=== PATIENT | male | born 1975 | race Caucasian/White ===

== ENCOUNTER 2019-11-24 16:05 | Emergency (ER) | payer BC, OTHER ==
[~2019-11-24] VITALS: Ht 190.5 cm; Wt 163.5 kg
[2019-11-24 16:10] VITALS: BP 145/75
[2019-11-24] MEDS ORDERED: FLUORESCEIN (FLUOR-I-STRIPS) 1 MG STRP ONE (16:16)
[2019-11-24] MEDS ORDERED: BSS 15 ML ONE (16:16)
[2019-11-24] MEDS ORDERED: TETRACAINE 0.5% OPHTH SOLN 4 ML BTL (SINGLE DOSE ONLY) ONE (16:16)
[2019-11-24] MEDS ORDERED: BSS 15 ML IR PRN (16:30)
[2019-11-24] MEDS ORDERED: TETRACAINE 0.5% OPHTH SOLN 4 ML BTL (SINGLE DOSE ONLY) OP ONE (16:30)
[2019-11-24] MEDS ORDERED: FLUORESCEIN (FLUOR-I-STRIPS) 1 MG STRP OU ONE (16:30)
[2019-11-24] MEDS ORDERED: ERYTHROMYCIN OPHTH OINT 1 GM (SINGLE USE) TUBE ONE (16:40)
--- NOTE | 2019-11-24 16:49 | ED EENT ---
History of Present Illness General Chief Complaint: Eye Problems Stated Complaint: METAL IN EYE Source: patient Exam Limitations: no limitations History of Present Illness Date Seen by Provider: Nov 24, 2019 Time Seen by Provider: 16:30 Initial Comments grinding some metal without eye protection and felt something get in his right eye. Feels like something scratching, no trauma or significant pain. No loss of vision, but moderate tearing. Allergies and Home Medications Allergies Coded Allergies: Sulfa (Sulfonamide Antibiotics) (Unverified Adverse Reaction, Unknown, 11/24/19) Patient Home Medication List Home Medication List Reviewed: Yes Review of Systems Review of Systems Constitutional: no symptoms reported Eyes: See HPI; Denies Blindness, Denies Blurred Vision, Denies Drainage; Foreign Body Sensation; Denies Inflammation, Denies Pain, Denies Photophobia, Denies Previous Injury, Denies Shadows Skin: No change in color, No rash Past Tjbdvbi-Mbeklx-Ubwiym Hx Past Med/Social Hx: Reviewed Nursing Past Med/Soc Hx Patient Social History Recent Foreign Travel: No Contact w/Someone Who Travel: No Visual Acuity : Eye Location: Right Physical Exam Vital Signs Vital Signs - First Documented 11/24/19 16:10 Temp 36.4 Pulse 96 Resp 16 B/P (MAP) 145/75 (98) Pulse Ox 97 O2 Delivery Room Air Height, Weight, BMI Height: '" Weight: lbs. oz. kg; BMI Method: General Appearance: WD/WN, no apparent distress Eyes: right eye foreign body; bilateral eye PERRL, bilateral eye EOMI applied tetracaine gtts, then fluorescien. Able to see central corneal F B.....removed w irrigation and cotton swab. Tolerated well. Remaining small (vertical) corneal abrasion of central cornea. Progress/Results/Core Measures Results/Orders My Orders Orders - ASHLEY HOFFMAN DO Tetracaine 0.5% Ophth Iris Sdv (Tetracai (11/24/19 16:16) Fluorescein Strips (Yraqm-F-Luvvcd) (11/24/19 16:16) Balanced Salt Irrigation Soln (Bss Irrig (11/24/19 16:16) Tetracaine 0.5% Ophth Iris Sdv (Tetracai (11/24/19 16:30) Balanced Salt Irrigation Soln (Bss Irrig (11/24/19 16:30) Fluorescein Strips (Dzwve-Y-Pgtbuc) (11/24/19 16:30) Erythromycin Ophth Oint (Erythromycin Op (11/24/19 16:40) Erythromycin Ophth Oint (Erythromycin Op (11/24/19 22:00) Medications Given in ED Current Medications Medications Dose Ordered Sig/Nancy Route Start Time Stop Time Status Last Admin Dose Admin Balanced Salt Solution 15 ml PRN PRN IR 11/24/19 16:30 11/24/19 16:54 DC 11/24/19 16:34 15 ML Fluorescein Sodium 1 mg ONCE ONCE OU 11/24/19 16:30 11/24/19 16:31 DC 11/24/19 16:35 1 MG Tetracaine HCl 1 OR 2 DROPS INTO AFFEC... ONCE ONCE OP 11/24/19 16:30 11/24/19 16:31 DC 11/24/19 16:35 4 ML Vital Signs/I&O 11/24/19 16:10 Temp 36.4 Pulse 96 Resp 16 B/P (MAP) 145/75 (98) Pulse Ox 97 O2 Delivery Room Air Departure Impression Primary Impression: Corneal abrasion Qualified Codes: S05.01XA - Injury of conjunctiva and corneal abrasion without foreign body, right eye, initial encounter Disposition: HOME, SELF-CARE Condition: Improved Departure-Patient Inst. Decision time for Depature: 16:47 Referrals: SELFJOHN MD (PCP/Family) Primary Care Physician Patient Instructions: Corneal Abrasion (DC) Add. Discharge Instructions: Follow-up with your or a local Eye Doctor in 2-3 days for re-evaluation of your eye injury. Use your antibiotic ointment in your right eye 3 times daily for 3 days All discharge instructions reviewed with patient and/or family. Voiced understanding. ASHLEY HOFFMAN DO Nov 24, 2019 16:48
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
[2019-11-24] MEDS ORDERED: ERYTHROMYCIN OPHTH OINT 1 GM (SINGLE USE) TUBE OP SCH (22:00)
== END 2019-11-24 16:54 | disposition home or self-care (01) ==
LOC: ER FS 16:06
DX: S05.01XA Injury of conjunctiva and corneal abrasion without foreign body, right eye, initial encounter (principal); Z88.2 Allergy status to sulfonamides; W22.8XXA Striking against or struck by other objects, initial encounter
CPT/HCPCS: 65220

== ENCOUNTER 2021-04-03 10:17 | Outpatient (CLI) | payer BC ==
[~2021-04-03] VITALS: Ht 190.5 cm; Wt 170.0 kg
[2021-04-03 10:23] VITALS: BP 167/92
[2021-04-03] MEDS ORDERED: diphenhydrAMINE 50 MG/ML INJ (BENADRYL) IV PRN (10:45)
[2021-04-03] MEDS ORDERED: CASIRIVIMAB/IMDEVIMAB 1,200 MG in NS (IVPB) 250 ML IV ONE (10:45)
[2021-04-03] MEDS ORDERED: ONDANSETRON 4 MG/2 ML (SDV) Z0FRAN IV PRN (10:45)
[2021-04-03] MEDS ORDERED: ACETAMINOPHEN 500 MG TAB (TYLENOL) PO PRN (10:45)
[2021-04-03] MEDS ORDERED: EPINEPHrine INJECTION 1 MG/ML AMP IM PRN (10:45)
[2021-04-03 11:59] VITALS: BP 131/87
== END 2021-04-03 12:00 | disposition home or self-care (01) ==
LOC: INFUSION 10:17
PROVIDERS: ATTEND Family Medicine
DX: U07.1 COVID-19 (principal)

== ENCOUNTER 2022-07-22 09:02 | Emergency (ER) | payer OTHER, BC ==
[~2022-07-22] VITALS: Ht 190 cm; Wt 158.7 kg
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
[2022-07-22] MEDS ORDERED: KETOROLAC 30 MG/ML VIAL IM ONE (09:30)
[2022-07-22] MEDS ORDERED: ORPHENADRINE 60 MG/2 ML (NORFLEX) AMP (ED ONLY) IM ONE (09:30)
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
[2022-07-22 10:38] VITALS: BP 157/111
== END 2022-07-22 10:38 | disposition home or self-care (01) ==
LOC: EDUNIT# 09:02 → ER 09:07
DX: S13.9XXA Sprain of joints and ligaments of unspecified parts of neck, initial encounter (principal); S40.011A Contusion of right shoulder, initial encounter; M54.50 Low back pain, unspecified; G89.29 Other chronic pain; E66.9 Obesity, unspecified; Z68.41 Body mass index [BMI] 40.0-44.9, adult; V89.2XXA Person injured in unspecified motor-vehicle accident, traffic, initial encounter; Y92.410 Unspecified street and highway as the place of occurrence of the external cause
CPT/HCPCS: 73030

== ENCOUNTER 2022-10-02 18:43 | Emergency (ER) | payer BC ==
[~2022-10-02] VITALS: Ht 190.5 cm; Wt 157.0 kg
--- NOTE | 2022-10-02 19:10 | ED General ---
General Chief Complaint: Post OP Complications/Pain Stated Complaint: POST OP INCISION SITE SWELLING,FATIGUE Nursing Triage Note: Patient had a neck surgery on September 22. The surgeon took a graft from the left lower abdoment to place in the neck. The patient states that he is having pain in his lower left abdomen and he feels that there is more swelling than there had been. Patient was prescribed Claude for pain and he took his last dose at 13:00 today. There is a dressing in place that is clean and dry. Source of Information: Patient, Spouse History of Present Illness Date Seen by Provider: Oct 02, 2022 Time Seen by Provider: 18:48 Initial Comments 47-year-old male presenting with complaints of not feeling well today and having generalized body aches. He felt he had increased pain in his neck as well as the left side of his abdomen. He felt like there was swelling to the left side of his abdomen. He had an anterior cervical discectomy fusion at C5-C6 level on September 22 and [place] with the Dr. Mak Gagnon MD. They did not try to contact the surgeon or check with them about their concerns today. He had not been taking his pain medicine in the last week as he was not feeling severe pain however today he has had several doses of his hydrocodone with no improvement in his body aches and pain. Although they did not check with the surgeon that actually did the surgery they did call his sister who they say is a nurse and she told him to get to the emergency department for testing to check for sepsis and an abscess. He denies fever or chills. He complains of generalized body aches and pain and pain along left hip where he had bone graft for his cervical spine fusion. Timing/Duration: 4-6 Hours Severity: Moderate Associated Systoms: No Chest Pain, No Cough, No Diaphoresis, No Fever/Chills, No Headaches, No Loss of Appetite; Malaise; No Nausea/Vomiting, No Rash, No Seizure, No Shortness of Air, No Syncope Allergies and Home Medications Allergies Coded Allergies: Sulfa (Sulfonamide Antibiotics) (Unverified Adverse Reaction, Unknown, 11/24/19) Patient Home Medication List Home Medication List Reviewed: Yes Review of Systems Review of Systems Constitutional: No chills, No fever; malaise EENTM: no symptoms reported Respiratory: No cough Cardiovascular: No chest pain Gastrointestinal: see HPI Genitourinary: no symptoms reported Musculoskeletal: see HPI Skin: No change in color Psychiatric/Neurological: No Symptoms Reported Past Vovujog-Txenwl-Elpmyo Hx Patient Social History Tobacco Use?: Yes Tobacco type used: Cigarettes Smoking Status: Current Everyday Smoker Substance use?: No Alcohol Use?: No Immunizations Up To Date First/Initial COVID19 Vaccinat: moderna Second COVID19 Vaccination Chalino: yes COVID19 Vaccine Mopper: Moderna Seasonal Allergies Seasonal Allergies: No Past Medical History Surgery/Hospitalization HX: DM, HTN, ACDF at C5-6 on September 22, 2022 Surgeries: Yes (Back fusion, fusion cage) Orthopedic Respiratory: No Cardiac: Yes Hypertension Neurological: No Genitourinary: No Gastrointestinal: No Musculoskeletal: No Endocrine: No HEENT: No Cancer: No Psychosocial: No Integumentary: No Blood Disorders: No Physical Exam Vital Signs Vital Signs - First Documented 10/02/22 18:45 Temp 36.3 Pulse 133 Resp 18 B/P (MAP) 133/81 (98) Pulse Ox 99 O2 Delivery Room Air Capillary Refill : Less Than 3 Seconds Height, Weight, BMI Height: '" Weight: lbs. oz. kg; 43.00 BMI Method: General Appearance: No Apparent Distress, Obese Respiratory: Chest Non Tender, Lungs Clear, Normal Breath Sounds, No Accessory Muscle Use, No Respiratory Distress Cardiovascular: Regular Rate, Rhythm, Normal Peripheral Pulses Gastrointestinal: Normal Bowel Sounds, No Pulsatile Mass, Soft; No Distended, No Guarding; Tenderness (mild tenderness to left lower abdominal wall around surgery site) Rectal: Deferred Extremity: Normal Capillary Refill, Normal Inspection, No Pedal Edema Neurologic/Psychiatric: Alert, Oriented x3, grip II-XII Norm as Tested Skin: Normal Color, Warm/Dry; No Erythema Focused Exam Lactate Level 10/02/22 19:10: Lactic Acid Level 2.05*H Lactic Acid Level Laboratory Tests Test 10/02/22 19:10 Lactic Acid Level 2.05 MMOL/L (0.50-2.00) *H Progress/Results/Core Measures Suspected Sepsis SIRS Temperature: Pulse: 133 Respiratory Rate: 18 Laboratory Tests 10/02/22 19:10: White Blood Count 14.6H Blood Pressure 133 /81 Mean: 98 10/02/22 19:10: Lactic Acid Level 2.05*H Laboratory Tests 10/02/22 19:10: Creatinine 1.55H, Platelet Count 247, Total Bilirubin 0.5 Results/Orders Lab Results Laboratory Tests Test 10/02/22 19:10 Range/Units White Blood Count 14.6 H 4.3-11.0 10^3/uL Red Blood Count 4.66 4.30-5.52 10^6/uL Hemoglobin 14.5 13.3-17.7 g/dL Hematocrit 42 40-54 % Mean Corpuscular Volume 90 80-99 fL Mean Corpuscular Hemoglobin 31 25-34 pg Mean Corpuscular Hemoglobin Concent 34 32-36 g/dL Red Cell Distribution Width 12.8 10.0-14.5 % Platelet Count 247 130-400 10^3/uL Mean Platelet Volume 9.6 9.0-12.2 fL Immature Granulocyte % (Auto) 0 % Neutrophils (%) (Auto) 70 42-75 % Lymphocytes (%) (Auto) 20 12-44 % Monocytes (%) (Auto) 7 0-12 % Eosinophils (%) (Auto) 2 0-10 % Basophils (%) (Auto) 0 0-10 % Neutrophils # (Auto) 10.3 H 1.8-7.8 10^3/uL Lymphocytes # (Auto) 2.9 1.0-4.0 10^3/uL Monocytes # (Auto) 1.1 H 0.0-1.0 10^3/uL Eosinophils # (Auto) 0.3 0.0-0.3 10^3/uL Basophils # (Auto) 0.1 0.0-0.1 10^3/uL Immature Granulocyte # (Auto) 0.1 0.0-0.1 10^3/uL Neutrophils % (Manual) 77 % Lymphocytes % (Manual) 20 % Monocytes % (Manual) 3 % Sodium Level 134 L 135-145 MMOL/L Potassium Level 3.7 3.6-5.0 MMOL/L Chloride Level 96 L 98-107 MMOL/L Carbon Dioxide Level 24 21-32 MMOL/L Anion Gap 14 5-14 MMOL/L Blood Urea Nitrogen 17 7-18 MG/DL Creatinine 1.55 H 0.60-1.30 MG/DL Estimat Glomerular Filtration Rate 55 BUN/Creatinine Ratio 11 Glucose Level 153 H 70-105 MG/DL Lactic Acid Level 2.05 *H 0.50-2.00 MMOL/L Calcium Level 9.0 8.5-10.1 MG/DL Corrected Calcium 9.2 8.5-10.1 MG/DL Total Bilirubin 0.5 0.1-1.0 MG/DL Aspartate Amino Transf (AST/SGOT) 38 H 5-34 U/L Alanine Aminotransferase (ALT/SGPT) 93 H 0-55 U/L Alkaline Phosphatase 65 40-136 U/L C-Reactive Protein 3.47 H <0.50 MG/DL Total Protein 6.4 6.4-8.2 GM/DL Albumin 3.7 3.2-4.5 GM/DL Influenza Type A (RT-PCR) Not Detected Not Detecte Influenza Type B (RT-PCR) Not Detected Not Detecte SARS-CoV-2 RNA (RT-PCR) Not Detected Not Detecte My Orders Orders - RAEANN ULRICH MD Ed Iv/Invasive Line Start (10/02/22 18:57) Cbc With Automated Diff (10/02/22 18:57) Comprehensive Metabolic Panel (10/02/22 18:57) Lactic Acid Analyzer (10/02/22 18:57) Blood Culture (10/02/22 18:57) Covid 19 Inhouse Test (10/02/22 18:57) Influenza A And B By Pcr (10/02/22 18:57) Crp Fs (10/02/22 19:05) Iohexol Injection (Omnipaque 300 Mg/Ml 1 (10/02/22 19:15) Iohexol Injection (Omnipaque 300 Mg/Ml 5 (10/02/22 19:15) Di Iv Start (Assessment) .IV start (10/02/22 19:09) Ns (Ivpb) (Sodium Chloride 0.9% Ivpb Bag (10/02/22 19:15) Ns (Ivpb) (Sodium Chloride 0.9% Ivpb Bag (10/02/22 19:15) Manual Differential (10/02/22 19:10) Ct Abdomen/Pelvis W (10/02/22 19:20) Ct Neck (Soft Tissue) W (10/02/22 19:20) Medications Given in ED Current Medications Medications Dose Ordered Sig/Nancy Route Start Time Stop Time Status Last Admin Dose Admin Iohexol 50 ml ONCE ONCE IV 10/02/22 19:15 10/02/22 19:16 DC 10/02/22 20:05 50 ML Iohexol 100 ml ONCE ONCE IV 10/02/22 19:15 10/02/22 19:16 DC 10/02/22 20:05 100 ML Sodium Chloride 100 ml ONCE ONCE IV 10/02/22 19:15 10/02/22 19:16 DC 10/02/22 20:05 100 ML Sodium Chloride 100 ml ONCE ONCE IV 10/02/22 19:15 10/02/22 19:16 DC 10/02/22 20:06 100 ML Vital Signs/I&O 10/02/22 10/02/22 18:45 21:15 Temp 36.3 Pulse 133 92 Resp 18 18 B/P (MAP) 133/81 (98) 126/86 Pulse Ox 99 99 O2 Delivery Room Air Room Air Capillary Refill : Less Than 3 Seconds Blood Pressure Mean: 98 Progress Note #1: Progress Note Potential diagnosis of sepsis, COVID, influenza, dehydration, postoperative infection. Obtain nasal swab to check for COVID and influenza. Obtain peripheral IV access and send labs to look for complete blood count, comprehensive metabolic profile, lactic acid, blood cultures, CRP. Obtain CT scan of the soft tissue neck and abdomen pelvis with IV contrast to look for signs of possible abscess or fluid collection. Progress Note #2: Progress Note Complete blood count shows mild elevation of his white blood cells to 14.6. He had a normal differential. His hemoglobin did not show anemia as it was 14.5. On my review of his comprehensive metabolic profile he had mild elevation of his creatinine to 1.55. This could be chronic as I do not have any old labs for comparison or might indicate some mild dehydration. His lactic acid was 2. He had no other acute significant abnormality on his comprehensive metabolic profile. On my personal review and interpretation of the CT scan of the neck abdomen and pelvis with IV contrast I did not appreciate any acute abscess or compromise of the surgery site. Progress Note #3: Progress Note I reviewed the radiologist report on the CT scan of the neck and abdomen pelvis. They did not see any definite abscess but he did have a small fluid collection at the site of bone harvesting from the left iliac crest. This could be a seroma or hematoma. He had some subcutaneous stranding in the tissues on the left abdomen wall. Again there is no definite focal fluid collection or abscess. I placed a page 2020 to the on-call provider for Dr. Gagnon, his spine surgeon in [place] through the answering service. Progress Note #4: Time: 20:31 Progress Note Physician Lumber Mover Jayant called back on behalf of Dr. Gagnon with orthopedics. He was familiar with the patient as he had assisted with the case. I reviewed the patient's presentation as well as physical findings and lab results and the CT report. He had a small fluid collection in the area of his bone harvest from the iliac crest. There is no definite focal abscess seen on imaging. The physician collections assistant advised that what is describing sound consistent with typical course of postoperative findings. As he did not have evidence of sepsis or focal abscess he recommended to defer any antibiotics at this point. Patient does have an appointment on Wednesday to be seen for his 2-week follow-up so he was encouraged to keep that appointment so they could see him in person. If he has more problems or concerns over the weekend we will have him page to reach the on-call provider to review things with them. I updated the patient and spouse about the test findings as well as what recommendations from orthopedic surgeon group out of [place]. Diagnostic Imaging Diagonstic Imaging: CT Plain Films/CT/US/NM/MRI: other (soft tissue neck) Comments NAME: MERISSAABIEL Linda [facility] REC#: [id number] PT STATUS: REG ER : 1975 PHYSICIAN: RAEANN ULRICH MD ADMIT DATE: 10/02/22/ER FS Draft Date of Exam:10/02/22 CT NECK (SOFT TISSUE) W PROCEDURE: CT neck soft tissue with contrast. TECHNIQUE: Multiple contiguous axial images were obtained through the neck after the administration of contrast. Auto Exposure Controls were utilized during the CT exam to meet ALARA standards for radiation dose reduction. INDICATION: Recent neck surgery. Pain. COMPARISON: None FINDINGS: The visualized portions of the nasopharynx, oropharynx and the hypopharynx are unremarkable. There is no airway compromise. No pathologically enlarged cervical lymph nodes are seen. No masses or fluid collections are identified in the neck. The deep spaces of the neck are unremarkable. There is no abnormal enhancement. The parotid, submandibular and thyroid glands are unremarkable. The visualized portions of the intracranial structures demonstrate no acute abnormalities. The paranasal sinuses and orbits are unremarkable. The visualized portion of the lung apices and mediastinum are unremarkable. Patient is status post previous anterior cervical fusion. IMPRESSION: Normal contrast-enhanced CT scan of the neck. Dictated on workstation # [id number] Dict: 10/02/222003 Trans: 10/02/222012 [facility] [id number] Interpreted by: MIGNON GUZMAN MD Electronically signed by: Reviewed: Reviewed by Me Diagonstic Imaging: CT Plain Films/CT/US/NM/MRI: abdomen, pelvis Comments NAME: ABIEL CRAVEN [facility] REC#: [id number] PT STATUS: REG ER : 1975 PHYSICIAN: RAEANN ULRICH MD ADMIT DATE: 10/02/22/ER FS Draft Date of Exam:10/02/22 CT ABDOMEN/PELVIS W PROCEDURE: CT abdomen and pelvis with contrast. TECHNIQUE: Multiple contiguous axial images were obtained through the abdomen and pelvis after administration of intravenous contrast. Auto Exposure Controls were utilized during the CT exam to meet ALARA standards for radiation dose reduction. All CT scans use one or more of the following dose optimizing techniques: automated exposure control, MA and/or KvP adjustment based on patient size and exam type or iterative reconstruction. INDICATION: Recent surgery. Now with swelling. COMPARISON: None FINDINGS: Included portions of the lung bases are clear. CT ABDOMEN: There are a few scattered distal colonic diverticula, but no CT evidence of acute diverticulitis. Normal appendix cannot be adequately identified, but there is no pericecal inflammation. Small bowel loops are nondistended. Benign-appearing right renal cyst is noted. There is underlying hepatic steatosis as well. Otherwise, the kidneys, liver, spleen, pancreas, and adrenal glands have a normal CT appearance. There is no loculated fluid collection, free fluid or free air within the abdomen. No abnormal mesenteric or retroperitoneal adenopathy is seen. Osseous structures show no acute abnormalities. Evaluation of the superficial soft tissue structures demonstrates asymmetric stranding of the subcutaneous fat of the lateral left lower abdominal quadrant and upper pelvis. There is suggestion of small focal fluid collection that measures 1.5 x 2.7 cm. No unexpected radiopaque foreign bodies are seen. CT PELVIS: Urinary bladder is unopacified. No calculi are seen within the urinary bladder. There is no loculated fluid collection, free fluid or free air within the pelvis. No abnormal adenopathy is seen. Osseous structures show no acute abnormalities. IMPRESSION: 1. Asymmetric stranding of the subcutaneous fat of the lateral left lower abdominal quadrant and upper pelvis. Correlation with site of previous surgery is advised. Not mentioned above, there is also defect of the underlying left iliac wing suggestive of previous bone harvesting. Small focal fluid collection is present within the subcutaneous fat and may be on the basis of small hematoma or seroma. Small abscess cannot be entirely excluded. 2. Hepatic steatosis. 3. Other nonemergent findings as detailed above. Dictated on workstation # [id number] Dict: 10/02/222006 Trans: 10/02/222016 [facility] [id number] Interpreted by: MIGNON GUZMAN MD Electronically signed by: Reviewed: Reviewed by Me Departure Impression Primary Impression: Localized swelling of abdominal wall Additional Impressions: Acute pain of left hip Iliac crest bone pain Disposition: 01 HOME, SELF-CARE Condition: Stable Departure-Patient Inst. Decision time for Depature: 21:04 Referrals: LIBERTAD BRANCH MD (PCP/Family) Primary Care Physician Patient Instructions: Hip Pain ED, Opioids for Short-Term Treatment of Pain ED Add. Discharge Instructions: Your labs and tests do not show sepsis or a definite sign of infection. There is some swelling with mild amount of fluid in the subcutaneous layer (the fatty tissue everyone has under the skin). There is a small fluid collection at the site of the bone harvest on your left iliac crest that could be a hematoma or seroma. No signs of abscess. May try applying ice and decreasing your activity over the weekend to try and help with the swelling to left side of abdominal wall. May try taking Cyclobenzaprine (Flexeril) as a muscle relaxer to help with some of the soreness and body aches. Keep appointment on Wednesday with Dr. Gagnon and if more concerns or problems over the weekend you could call and reach the [employer] provider by calling his office phone and select option 0 (Zero) to be connected to answering service. RAEANN ULRICH MD Oct 02, 2022 19:10
[2022-10-02] MEDS ORDERED: IOHEXOL 300 MG/ML 100 ML (OMNIPAQUE 300) VIAL IV ONE (19:15)
[2022-10-02] MEDS ORDERED: IOHEXOL 300 MG/ML 50 ML (OMNIPAQUE 300) VIAL IV ONE (19:15)
[2022-10-02] MEDS ORDERED: NS 100 ML (IVPB) BAG IV ONE ×2 (19:15)
[2022-10-02 19:16] LABS: BASOPHILS # (AUTO) 0.1 10^3/uL (0.0-0.1); BASOPHILS % (AUTO) 0 % (0-10); EOSINOPHILS # (AUTO) 0.3 10^3/uL (0.0-0.3); EOSINOPHILS % (AUTO) 2 % (0-10); HEMATOCRIT 42 % (40-54); HEMOGLOBIN 14.5 g/dL (13.3-17.7); LYMPHOCYTES # (AUTO) 2.9 10^3/uL (1.0-4.0); LYMPHOCYTES % (AUTO) 20 % (12-44); MEAN CORPUSCULAR HEMOGLOBIN 31 pg (25-34); MEAN CORPUSCULAR HGB CONC 34 g/dL (32-36); MEAN CORPUSCULAR VOLUME 90 fL (80-99); MEAN PLATELET VOLUME 9.6 fL (9.0-12.2); MONOCYTES # (AUTO) 1.1 10^3/uL (0.0-1.0); MONOCYTES % (AUTO) 7 % (0-12); NEUTROPHILS # (AUTO) 10.3 10^3/uL (1.8-7.8); NEUTROPHILS % (AUTO) 70 % (42-75); PLATELET COUNT 247 10^3/uL (130-400); WHITE BLOOD COUNT 14.6 10^3/uL (4.3-11.0)
[2022-10-02 19:35] LABS: ALBUMIN 3.7 GM/DL (3.2-4.5); BILIRUBIN,TOTAL 0.5 MG/DL (0.1-1.0); CREATININE SERUM 1.55 MG/DL (0.60-1.30); POTASSIUM 3.7 MMOL/L (3.6-5.0); TOTAL PROTEIN 6.4 GM/DL (6.4-8.2)
[2022-10-02 19:52] LABS: LYMPHOCYTES % (MANUAL) 20 %; MONOCYTES % (MANUAL) 3 %; NEUTROPHILS % (MANUAL) 77 %
--- NOTE | 2022-10-02 20:14 | Diagnostic Imaging Report ---
PROCEDURE: CT neck soft tissue with contrast. TECHNIQUE: Multiple contiguous axial images were obtained through the neck after the administration of contrast. Auto Exposure Controls were utilized during the CT exam to meet ALARA standards for radiation dose reduction. INDICATION: Recent neck surgery. Pain. COMPARISON: None FINDINGS: The visualized portions of the nasopharynx, oropharynx and the hypopharynx are unremarkable. There is no airway compromise. No pathologically enlarged cervical lymph nodes are seen. No masses or fluid collections are identified in the neck. The deep spaces of the neck are unremarkable. There is no abnormal enhancement. The parotid, submandibular and thyroid glands are unremarkable. The visualized portions of the intracranial structures demonstrate no acute abnormalities. The paranasal sinuses and orbits are unremarkable. The visualized portion of the lung apices and mediastinum are unremarkable. Patient is status post previous anterior cervical fusion. IMPRESSION: Normal contrast-enhanced CT scan of the neck. Dictated by: Dictated on workstation # [id number]
--- NOTE | 2022-10-02 20:17 | Diagnostic Imaging Report ---
PROCEDURE: CT abdomen and pelvis with contrast. TECHNIQUE: Multiple contiguous axial images were obtained through the abdomen and pelvis after administration of intravenous contrast. Auto Exposure Controls were utilized during the CT exam to meet ALARA standards for radiation dose reduction. All CT scans use one or more of the following dose optimizing techniques: automated exposure control, MA and/or KvP adjustment based on patient size and exam type or iterative reconstruction. INDICATION: Recent surgery. Now with swelling. COMPARISON: None FINDINGS: Included portions of the lung bases are clear. CT ABDOMEN: There are a few scattered distal colonic diverticula, but no CT evidence of acute diverticulitis. Normal appendix cannot be adequately identified, but there is no pericecal inflammation. Small bowel loops are nondistended. Benign-appearing right renal cyst is noted. There is underlying hepatic steatosis as well. Otherwise, the kidneys, liver, spleen, pancreas, and adrenal glands have a normal CT appearance. There is no loculated fluid collection, free fluid or free air within the abdomen. No abnormal mesenteric or retroperitoneal adenopathy is seen. Osseous structures show no acute abnormalities. Evaluation of the superficial soft tissue structures demonstrates asymmetric stranding of the subcutaneous fat of the lateral left lower abdominal quadrant and upper pelvis. There is suggestion of small focal fluid collection that measures 1.5 x 2.7 cm. No unexpected radiopaque foreign bodies are seen. CT PELVIS: Urinary bladder is unopacified. No calculi are seen within the urinary bladder. There is no loculated fluid collection, free fluid or free air within the pelvis. No abnormal adenopathy is seen. Osseous structures show no acute abnormalities. IMPRESSION: 1. Asymmetric stranding of the subcutaneous fat of the lateral left lower abdominal quadrant and upper pelvis. Correlation with site of previous surgery is advised. Not mentioned above, there is also defect of the underlying left iliac wing suggestive of previous bone harvesting. Small focal fluid collection is present within the subcutaneous fat and may be on the basis of small hematoma or seroma. Small abscess cannot be entirely excluded. 2. Hepatic steatosis. 3. Other nonemergent findings as detailed above. Dictated by: Dictated on workstation # [id number]
[2022-10-02 21:15] VITALS: BP 126/86
== END 2022-10-02 21:16 | disposition home or self-care (01) ==
LOC: EDUNIT# 18:43 → ER FS 18:44
DX: R19.04 Left lower quadrant abdominal swelling, mass and lump (principal); M25.552 Pain in left hip; F17.210 Nicotine dependence, cigarettes, uncomplicated; E66.9 Obesity, unspecified; Z68.41 Body mass index [BMI] 40.0-44.9, adult; Z20.822 Contact with and (suspected) exposure to COVID-19
CPT/HCPCS: 36415; 70491; 74177; 80053; 83605; 85007; 85027; 86141; 87040; 87636; Q9967